=== PATIENT | female | born 1990 | race Caucasian/White ===

== ENCOUNTER → 2019-11-26 | Outpatient (CLI) | payer OTHER ==
[~2019-11-26] MED LIST: IRON PO; LACT1CAP37 PO; NORG1TAB28 PO; NORG1TAB73 PO; OMEP-110 PO
== END | disposition home or self-care (01) ==
LOC: CFH 12:32
PROVIDERS: ATTEND Physician Assistant
DX: S82.832A Other fracture of upper and lower end of left fibula, initial encounter for closed fracture (principal); S80.12XA Contusion of left lower leg, initial encounter; M25.462 Effusion, left knee; X58.XXXA Exposure to other specified factors, initial encounter; Y93.89 Activity, other specified; Y92.89 Other specified places as the place of occurrence of the external cause; Y99.8 Other external cause status

== ENCOUNTER → 2020-10-07 | Outpatient (CLI) | payer OTHER ==
[~2020-10-07] MED LIST changes: +OMNIPAQUE 350 MG/ML, 100ML BOTTLE ONE
== END | disposition home or self-care (01) ==
LOC: CFH 13:38
PROVIDERS: ATTEND Nurse Practitioner Acute Care
DX: C53.9 Malignant neoplasm of cervix uteri, unspecified (principal); R91.8 Other nonspecific abnormal finding of lung field; R19.09 Other intra-abdominal and pelvic swelling, mass and lump
CPT/HCPCS: 71260; 74177; Q9967

== ENCOUNTER → 2020-10-28 | Outpatient (CLI) | payer OTHER ==
[~2020-10-28] MED LIST changes: -OMNIPAQUE 350 MG/ML, 100ML BOTTLE ONE
== END | disposition home or self-care (01) ==
LOC: PETCFH 08:16
PROVIDERS: ATTEND Nurse Practitioner Acute Care
DX: C53.9 Malignant neoplasm of cervix uteri, unspecified (principal); R19.09 Other intra-abdominal and pelvic swelling, mass and lump; N94.89 Other specified conditions associated with female genital organs and menstrual cycle; Z90.710 Acquired absence of both cervix and uterus
CPT/HCPCS: 78815; A9552

== ENCOUNTER 2020-11-05 12:33 | Day surgery (SDC) | payer OTHER ==
[2020-11-03 13:50] LABS: BASOPHILS % (AUTO) 0 % (0-1); EOSINOPHILS % (AUTO) 1 % (1-7); LYMPHOCYTES % (AUTO) 33 % (22-44); MEAN CORPUSCULAR HEMOGLOBIN 28.1 pg (27.0-34.8); MEAN CORPUSCULAR HGB CONC 33.3 g/dL (32.4-35.8); MEAN PLATELET VOLUME 7.4 fL (7.4-10.4); MONOCYTES % (AUTO) 6 % (2-9); NEUTROPHILS % (AUTO) 59 % (42-75); PLATELET COUNT 349 x10^3/uL (130-400); RED BLOOD COUNT 4.86 x10^6/uL (3.82-5.3)
[2020-11-03 14:00] LABS: MD NO
[2020-11-03 14:05] LABS: CHLORIDE 108 mmol/L (98-107)
[2020-11-03 14:12] LABS: ALANINE AMINOTRANSFERASE 23 U/L (12-78); ALKALINE PHOSPHATASE 66 U/L (45-117); ANION GAP 5 mmol/L (5-15); BILIRUBIN,TOTAL 0.4 mg/dL (0.2-1.0); CALCIUM 8.8 mg/dL (8.5-10.1); CREATININE 0.78 mg/dL (0.55-1.02); TOTAL PROTEIN 7.5 g/dL (6.4-8.2)
[2020-11-03 14:37] LABS: INTERNATIONAL NORMALIZED RATIO 0.97 (0.93-1.1); PROTHROMBIN TIME 10.3 Seconds (9.6-11.5)
[~2020-11-05] VITALS: Ht 172.7 cm; Wt 90.9 kg
[~2020-11-05 12:33] MED LIST changes: +CETI10TA76 PO; +DEXL30CA2 PO
[2020-11-05 12:48] VITALS: BP 118/82
[2020-11-05] MEDS ORDERED: MIDAZOLAM 1 MG/ML, 2ML ONE (12:52)
[2020-11-05] MEDS ORDERED: FENTANYL PF 250 MCG/5ML ONE (12:52)
[2020-11-05] MEDS ORDERED: CHLORHEXIDINE 15 ML UDC ONE (12:58)
[2020-11-05] MEDS ORDERED: CHLORHEXIDINE 15 ML UDC MM ONE (13:00)
[2020-11-05] MEDS ORDERED: LACTATED RINGERS 1,000 ML IV SCH (13:00)
[2020-11-05] MEDS ORDERED: SUGAMMADEX 200 MG/2 ML IVPush ONE (13:02)
[2020-11-05] MEDS ORDERED: GABAPENTIN 300 MG CAPSULE ONE (13:27)
[2020-11-05] MEDS ORDERED: ACETAMINOPHEN 500 MG TABLET ONE (13:27)
[2020-11-05] MEDS ORDERED: SCOPOLAMINE 1MG PATCH TD ONE (13:27)
[2020-11-05] MEDS ORDERED: SCOPOLAMINE 1MG PATCH TD SCH (13:30)
[2020-11-05] MEDS ORDERED: GABAPENTIN 300 MG CAPSULE PO ONE (13:30)
[2020-11-05] MEDS ORDERED: ACETAMINOPHEN 500 MG TABLET PO ONE (13:30)
[2020-11-05] MEDS ORDERED: INDOCYANINE GREEN 25 MG VIAL ONE (13:32)
[2020-11-05] MEDS ORDERED: BUPIVACAINE/PF 0.25% ONE (13:32)
[2020-11-05] MEDS ORDERED: EPINEPHRINE 1 MG/ML, 1ML ONE (13:32)
[2020-11-05] MEDS ORDERED: HEPARIN 1,000 UNITS/ML, 10ML ONE (13:32)
[2020-11-05] MEDS ORDERED: HALOPERIDOL 5 MG/ML IV PRN (14:00)
[2020-11-05] MEDS ORDERED: MEPERIDINE/PF 25MG/0.5ML IVPush PRN (14:00)
[2020-11-05] MEDS ORDERED: HYDROmorphone 1 MG/ML, 1ML INJ IVPush PRN (14:00)
[2020-11-05] MEDS ORDERED: DIPHENHYDRAMINE 50 MG/ML, 1ML IVPush PRN (14:00)
[2020-11-05] MEDS ORDERED: hydrALAzine 20 MG/ML, 1ML IV PRN (14:00)
[2020-11-05] MEDS ORDERED: PROMETHAZINE 25 MG/ML, 1ML IVPush PRN (14:00)
[2020-11-05] MEDS ORDERED: LABETALOL 5MG/ML, 20ML IV PRN (14:00)
[2020-11-05] MEDS ORDERED: FENTANYL PF 100 MCG/2ML IV PRN (14:00)
[2020-11-05] MEDS ORDERED: OXYcodone 5 MG/5 ML ORAL.SOL UDC PO PRN (14:00)
[2020-11-05] MEDS ORDERED: CEFAZOLIN 1,000 MG ONE (14:30)
[2020-11-05] MEDS ORDERED: ONDANSETRON 2MG/ML, 2ML ONE (14:30)
[2020-11-05] MEDS ORDERED: ROCURONIUM 10MG/ML,5ML ONE (14:30)
[2020-11-05] MEDS ORDERED: KETOROLAC 30 MG/1 ML ONE (14:30)
[2020-11-05] MEDS ORDERED: SUCCINYLCHOLINE 20 MG/ML, 10ML ONE (14:30)
[2020-11-05] MEDS ORDERED: PROPOFOL 10 MG/ML, 20ML ONE (14:30)
[2020-11-05] MEDS ORDERED: DEXAMETHASONE 4 MG/ML, 5ML ONE (14:30)
[2020-11-05] MEDS ORDERED: NEOSTIGMINE 1 MG/ML, 10ML ONE (14:30)
[2020-11-05] MEDS ORDERED: GLYCOPYRROLATE 0.2MG/1ML, 5ML ONE (14:30)
[2020-11-05] MEDS ORDERED: BUPIVACAINE/PF-EPI 0.25% 1:200K INFIL ONE (14:56)
[2020-11-05] MEDS ORDERED: FENTANYL PF 100 MCG/2ML ONE ×2 (16:15→17:36)
[2020-11-05] MEDS ORDERED: OXYcodone 5 MG/5 ML ORAL.SOL UDC ONE (17:36)
[2020-11-05] MEDS ORDERED: HYDROmorphone 1 MG/ML, 1ML INJ ONE (18:01)
== END 2020-11-05 19:45 | disposition home or self-care (01) ==
LOC: OUT 12:33
PROVIDERS: ATTEND Specialist
DX: N83.12 Corpus luteum cyst of left ovary (principal); R19.09 Other intra-abdominal and pelvic swelling, mass and lump; K21.9 Gastro-esophageal reflux disease without esophagitis; Z20.822 Contact with and (suspected) exposure to COVID-19; Z79.01 Long term (current) use of anticoagulants; Z79.899 Other long term (current) drug therapy; Z85.41 Personal history of malignant neoplasm of cervix uteri; Z88.5 Allergy status to narcotic agent; Z91.013 Allergy to seafood; Z91.018 Allergy to other foods; Z90.710 Acquired absence of both cervix and uterus; Z90.79 Acquired absence of other genital organ(s)
CPT/HCPCS: 36415; 44979; 58661; 58662; 80053; 85025; 85610; 85730; 86304; 86850; 86900; 86923; 88112; 88304; 88305; 88307; 88331; J0171; J0330; J0690; J1100; J1170; J1644; J1885; J2250; J2405; J2704; J2710; J3010; J7120; S2900; U0003